=== PATIENT | male | born 1965 | race Caucasian/White ===

== ENCOUNTER 2022-11-25 21:49 | Emergency (ER) | payer OTHER, SELFPAY ==
--- NOTE | ~2022-11-25 | CT_ITS ---
EXAMINATION: CT HEAD WITHOUT CONTRAST CLINICAL INFORMATION: Confusion. COMPARISON: None available. TECHNIQUE: Contiguous axial imaging was performed from the skull base to vertex without intravenous administration of contrast. This CT examination was performed using dose optimization techniques as appropriate, variously including the following: *Automated exposure control *Adjustment of mA and/or kV according to patient size (this includes techniques or standardized protocols for targeted exams where dose is matched to indication/reason for exam; i.e. extremities or head) *Use of iterative reconstruction technique DLP: 687 mGy-cm FINDINGS: There is mild cerebral volume loss with prominence of the lateral and the third ventricles. The cortical sulci are widened appropriately. The fourth ventricle and basal cisterns are normally outlined. There is mild bilateral periventricular and central white matter diminished attenuation. There are old left basal ganglia lacunar infarcts. There is also an old right cerebellar infarct. There is no acute territorial defect, hemorrhage or midline shift. The extra-axial spaces are unremarkable. Calvarium: Intact. Maxillofacial sinuses and mastoids: There is ethmoid sinus mucosal thickening. Remaining maxillofacial sinuses and mastoids are clear. CT/CT head/brain wo IV con IMPRESSION: No acute intracranial pathology.
[2022-11-25 22:06] VITALS: BP 126/86; PULSE 81; RESP 21; TEMP 36.6; O2SAT 96
[2022-11-25 22:16] VITALS: BP 126/86; BP 128/85; PULSE 81; PULSE 92; RESP 21; TEMP 36.7; O2SAT 96; O2SAT 97; BMI 32.7
--- NOTE | 2022-11-25 22:23 | ECG_ITS ---
Test Reason : WEAKNESS Blood Pressure : / mmHG Vent. Rate : 076 BPM Atrial Rate : 076 BPM P-R Int : 186 ms QRS Dur : 080 ms QT Int : 376 ms P-R-T Axes : 018 -21 -11 degrees QTc Int : 423 ms Normal sinus rhythm Inferior infarct (cited on or before 22-NOV-2017) Anterior infarct , age undetermined Abnormal ECG When compared with ECG of 22-NOV-2017 19:07, Anterior infarct is now Present Referred By: Romy Larkin Electronically Signed By:COBY JUARES
--- NOTE | 2022-11-25 22:35 | ED_ITS ---
HPI - General Adult General Chief complaint: General Medical Stated complaint: FATIGUE WEAKNESS Time Seen by Provider: 11/25/22 21:59 Source: patient Mode of arrival: EMS Limitations: no limitations History of Present Illness HPI narrative: 57 yo male with stroke states he has speech memory R hand and leg weakness now uses a cane, DM, HTN, not on thinners notes he has been weak and depressed drinking ETOH and not himself for 1 week. He states this started after a friend's dad . He has no CP/SOB, fevers, or GI symptoms, no GIB symptoms. He has no fallen. His daughter told RN he was found sitting in his car at one point. He tells me he doesn't take his medications any more because he doesn't want to. MD complaint: weakness Onset (ago): week(s) (1) Radiation: non-radiation Severity: mild Quality: dull and constant Relieving factors: rest Exacerbating factors: movement Associated symptoms: other (depression ETOH use denies SI) Treatments prior to arrival: none Related Data Allergies Allergy/AdvReac Type Severity Reaction Status Date / Time bee pollen [BEE STINGS] Allergy Severe ANAPHYLAXIS Unverified 12/04/19 15:22 Review of Systems 2 Review of Systems: Constitutional : No Fever, No Chills, No Fatigue ENT/Mouth : No sore throat, No Rhinorrhea Eyes: No Eye Pain, No Swelling, No Redness Cardiovascular : No Chest Pain, No SOB, No Dyspnea on Exertion Respiratory : No Cough, No Sputum Gastrointestinal : No Nausea, No Vomiting, No Diarrhea, No abdominal Pain Genitourinary : No Dysuria, No Urinary Frequency, No Hematuria, Musculoskeletal : No joint pain, No Myalgias, No Joint Swelling Skin : No Skin Lesions, No rash Neuro : pos Weakness, No Numbness, No Dizziness, no Headache Psych : No Anxiety/Panic, pos Depression Heme/Lymph: No Bruising, No Bleeding,No Lymphadenopathy Endocrine : No Polyuria, No Polydipsia All other systems reviewed and are negative [facility] Past Medical History Attestation statement: The following information was validated with the patient. Medical History Diabetes HTN (hypertension) Stroke Social History Social History Alcohol intake: current Alcohol intake frequency: a few times a month Alcohol type: hard liquor Smoked in Last 30 Days: No Use of substances other than those prescribed or required for medical reasons: Yes Substance Use Type: Marijuana Substance Use Frequency: Occasionally Last Used Substance: Unknown Advance Directives: No Advance Directives Information Provided: No Physical Exam ED Vital Signs: Vital Signs - 24 hr 11/25/22 22:06 11/25/22 22:16 Temperature 98 F 98.0 F Pulse Rate 81 81 Respiratory Rate 21 H 21 H Blood Pressure 126/86 126/86 Pulse Oximetry 96 96 Oxygen Delivery Method Room Air Room Air BMI result Body Mass Index 32.7 Appearance: Alert. Oriented X3. No acute distress. Eyes: Pupils equal, round and reactive to light. ENT: Pharynx normal. Neck: Normal inspection. Neck supple. CVS: Normal heart rate and rhythm. Pulses normal. Respiratory: No respiratory distress. Breath sounds normal. Abdomen: Soft and non-tender. Skin: Skin warm and dry. Normal skin color. Normal skin turgor. Extremities: No lower extremity edema. No calf ttp Neuro: Oriented X 3. No motor deficit. No sensory deficit. sometimes has word finding difficulties Course Course Course Narrative: signed out to Dr. Magaña Reevaluation(s) Reevaluation #1: Physician observation started at 219am. Patient placed in physician observation because the patient needed more time for CARE team to assess the need for psych admission. At the time observation was started the patient's vitals were stable, patient is alert and oriented but slightly agitated, Neuro: at baseline. CV RRR, Lungs clear Medications Administered Discontinued Medications Generic Name Dose Route Start Last Admin Trade Name Winnie PRN Reason Stop Dose Admin Thiamine HCl 200 mg/ Sodium 102 mls @ 204 mls/hr 11/25/22 22:23 11/25/22 23:12 Chloride IV 11/25/22 22:52 204 mls/hr ONCE ONE Administration Medical Decision Making Medical Decision Making [facility] Narrative: 57 yo male with stroke states he has speech memory R hand and leg weakness now uses a cane, DM, HTN, not on thinners here with c/o diffuse weakness to me, fatigue, increasing ETOH use, not taking medications for weeks, depression but no SI. He will need basic labs, ETOH level, IV thiamine, EKG. I have ordered CT head to rule out any new stroke though he denies deficits to me. Differential Diagnosis Differential Diagnoses: The differential diagnosis associated with the presentation includes UTI, dehydration, depression, anemia, SI Admission/Observation Consideration of admission/observation: Escalation of care including admission/observation considered observe until cleared and see CARE team. Lab Data MDM Lab Attestation statement: I reviewed the patient's lab results. 11/25/22 22:49 11/25/22 22:49 Labs: Lab Results 11/25/22 11/26/22 Range/Units 22:49 01:18 WBC 6.0 (4.8-10.8) X10*3/uL RBC 4.95 (4.60-5.80) X10*6/uL Hgb 16.9 (14.0-18.0) g/dl Hct 49.1 (42.0-52.0) % MCV 99.2 H (80.0-98.0) fL MCH 34.1 H (27.0-33.0) pg MCHC 34.4 (31.0-36.0) g/dl RDW 14.3 (11.0-16.0) % Plt Count 255 (160-400) X10*3/uL MPV 9.6 (9.4-12.4) fL Immature Gran % (Auto) 0.2 (0.0-0.4) % Neut % (Auto) 36.0 L (45-73) % Lymph % (Auto) 53.1 H (20-40) % [place] % (Auto) 5.2 (2-11) % Eos % (Auto) 4.5 H (0-4) % Baso % (Auto) 1.0 (0-2) % Lymph # (Auto) 3.2 (1.2-4.9) X10*3/uL [place] # (Auto) 0.3 (0.1-1.2) X10*3/uL Eos # (Auto) 0.3 (0.0-0.4) X10*3/uL Baso # (Auto) 0.1 (0.0-0.2) X10*3/uL Abs Immat Gran (auto) 0.01 (0.00-0.03) X10*3/uL Absolute Neuts (auto) 2.2 (2.0-8.3) x10*3/uL Absolute Nucleated RBC 0.000 (0.0-0.012) X10*3/uL Nucleated RBC % (auto) 0.0 (0.0-0.2) /100WBC Sodium 142 (135-145) mmol/L Potassium 3.8 (3.3-5.1) mmol/L Chloride 104 (96-108) mmol/L Carbon Dioxide 29 (22-29) mmol/L Anion Gap 13 (12-20) BUN 9 (9-16) mg/dL Creatinine 0.97 (0.5-1.4) mg/dL Estim Creat Clear Calc 102.9 Estimated GFR > 60 Random Glucose 134 H (60-115) mg/dL Calcium 9.3 (8.4-10.2) mg/dL Magnesium 1.9 (1.6-2.6) mg/dL Total Bilirubin 0.4 (0.0-1.0) mg/dL Direct Bilirubin 0.2 (0.0-0.5) mg/dL AST 21 (5-37) U/L ALT 18 (0-40) U/L Alkaline Phosphatase 71 (39-117) U/L Ammonia 26 (13-55) umol/L Total Protein 7.1 (6.5-8.0) g/dL Albumin 3.9 (3.5-5.0) g/dL Ethyl Alcohol 304 H* mg/dL COVID-19 (DONAL) Negative (Negative) COVID-19 Clin Com See Note Independent Interpretation I performed an independent interpretation of an: EKG and CT Scan (no ICH) Interpretation: Rate: 76 Rhythm: NSR [place]: left Normal P waves. Normal NAMRATA. Normal QRS complex. ST T wave : no JASON, inverted T wave III no JASON qTC: normal prior studies: no acute ischemia The study has been interpreted contemporaneously by me. . Radiology Impression Discussion of test interpretation with radiology: I have reviewed the radiologist's reading. Independent Historian Clinical information obtained from an independent historian. History obtained from or confirmed by: EMS External Record Review External record reviewed: Outpatient record Discharge Plan Discharge Clinical Impression: Weakness Alcohol intoxication Qualifiers: Complication of substance-induced condition: uncomplicated Qualified Code(s): F 10920 - Alcohol use, unspecified with intoxication, uncomplicated Depression Qualifiers: Depression Type: unspecified Qualified Code(s): F32.A - Depression, unspecified Patient Disposition: Still a Patient
[2022-11-25 22:57] LABS: MANUAL DIFF FLAG NO
[2022-11-25 22:59] LABS: Basophils Absolute Auto 0.1 X10*3/uL (0.0-0.2); Eosinophils Absolute Auto 0.3 X10*3/uL (0.0-0.4); Eosinophils Percent Auto 4.5 % (0-4); Hematocrit 49.1 % (42.0-52.0); Hemoglobin 16.9 g/dl (14.0-18.0); Imm Gran Abs Auto 0.01 X10*3/uL (0.00-0.03); Imm Gran Pct Auto 0.2 % (0.0-0.4); Lymphocytes Absolute Auto 3.2 X10*3/uL (1.2-4.9); Lymphocytes Percent Auto 53.1 % (20-40); Mean Corpuscular HGB Conc 34.4 g/dl (31.0-36.0); Mean Corpuscular Hemoglobin 34.1 pg (27.0-33.0); Mean Corpuscular Volume 99.2 fL (80.0-98.0); Mean Platelet Volume 9.6 fL (9.4-12.4); Monocytes Absolute Auto 0.3 X10*3/uL (0.1-1.2); Monocytes Percent Auto 5.2 % (2-11); Neutrophils Absolute Auto 2.2 x10*3/uL (2.0-8.3); Platelet Count 255 X10*3/uL (160-400); Red Blood Count 4.95 X10*6/uL (4.60-5.80); Red Cell Distribution Width 14.3 % (11.0-16.0)
[2022-11-25] MEDS: Thiamine HCL 200 MG in 0.9 % Sodium Chloride 100 ML 204 MG IV (23:12)
[2022-11-25 23:15] LABS: Alanine Aminotransferase 18 U/L (0-40); Albumin Level 3.9 g/dL (3.5-5.0); Alkaline Phosphatase 71 U/L (39-117); Anion Gap 13 (12-20); Aspartate Amino Transferase 21 U/L (5-37); Bilirubin Direct 0.2 mg/dL (0.0-0.5); Bilirubin Total 0.4 mg/dL (0.0-1.0); Blood Urea Nitrogen 9 mg/dL (9-16); Calcium 9.3 mg/dL (8.4-10.2); Carbon Dioxide 29 mmol/L (22-29); Chloride 104 mmol/L (96-108); Creatinine Clr Calc Pharmacy 102.9; Estimated Glomerular Filt Rate > 60; Ethanol 304 mg/dL; Glucose Random 134 mg/dL (60-115); Magnesium 1.9 mg/dL (1.6-2.6); Potassium 3.8 mmol/L (3.3-5.1); Sodium 142 mmol/L (135-145); Total Protein 7.1 g/dL (6.5-8.0)
[2022-11-25 23:24] LABS: COVID-19 Test Negative (Negative); IDNOW Serial# 6674DD1D
--- NOTE | 2022-11-26 00:06 | PC.NURSE ---
Pt asissted to bathroom. standby assist- unsteady gait. PT reports feeling dizzy. ETOH 304. Call field within reach
[2022-11-26 01:31] LABS: Ammonia 26 umol/L (13-55)
[2022-11-26 02:27] VITALS: BP 110/71; PULSE 94; RESP 17; TEMP 36.7; O2SAT 94
--- NOTE | 2022-11-26 03:28 | PC.NURSE ---
Patient pull off cardiac monitoring, and took off hospital gown noting he was uncomfortable. States he cannot fall asleep and that at home he has only been sleeping 2 hours a night. Pt requesting medications to help him sleep.
[2022-11-26] MEDS: LORazepam 1 MG TABLET PO (04:47)
[2022-11-26 06:50] VITALS: BP 147/86; PULSE 80; RESP 13; TEMP 37.3; O2SAT 94
--- NOTE | 2022-11-26 07:28 | PC.NURSE ---
Alert and oriented, calm and cooperative, reports 6/10 chronic back pain. ambulating to bathroom with cane, gait steady.
--- NOTE | 2022-11-26 10:21 | PC.NURSE ---
Daughter updated on current condition. Daughter stating she would like her father offered resources regarding etoh abuse.
--- NOTE | 2022-11-26 11:02 | PC.NURSE ---
Patient reminded that urine specimen is needed, patient stating he doesn't feel the urge to go right now
[2022-11-26 11:37] LABS: Appearance Urine Clear; Color Urine Yellow; Glucose Urine UA Negative (Negative); Leukocyte Esterase Urine Negative (Negative); Nitrite Urine Negative (Negative); PH 5.5 (5.0-9.0); Specific Gravity - Urine 1.015 (1.005-1.025); Urine Blood Negative (Negative); Urine Ketones Negative (Negative); Urine Protein Negative (Neg-Trace)
[2022-11-26 11:45] LABS: Amphetamine Screen Urine Not Detected (Not Detect); Barbiturates, Urine Not Detected (Not Detect); Benzodiazepines Screen Urine Not Detected (Not Detect); Cannabinoid Screen Urine Not Detected (Not Detect); Cocaine Screen Urine Not Detected (Not Detect); Fentanyl, urine Not Detected (Not Detect); Opiate Screen Urine Not Detected (Not Detect); Phencyclidine Screen Urine Not Detected (Not Detect)
--- NOTE | 2022-11-26 13:59 | PC.NURSE ---
BP 92/44, provider aware, new orders obtained for 500mls fluids
[2022-11-26 16:59] VITALS: BP 189/87; PULSE 84; RESP 14; TEMP 36.7; O2SAT 97
== END 2022-11-26 18:44 | disposition home or self-care (01) ==
PROVIDERS: Emergency Provider Emergency Medicine
DX: R53.1 Weakness (principal); F10.920 Alcohol use, unspecified with intoxication, uncomplicated; Y90.8 Blood alcohol level of 240 mg/100 ml or more; F32.A Depression, unspecified; R45.1 Restlessness and agitation; Z20.822 Contact with and (suspected) exposure to COVID-19; E11.9 Type 2 diabetes mellitus without complications; I10 Essential (primary) hypertension; Z86.73 Personal history of transient ischemic attack (TIA), and cerebral infarction without residual deficits; F12.90 Cannabis use, unspecified, uncomplicated; Z91.148 Patient's other noncompliance with medication regimen for other reason
CPT/HCPCS: 36415; 70450; 80048; 80076; 80307; 81003; 82140; 83735; 85025; 87635; 93005; 96374; 99285; J3411; S9485

== ENCOUNTER 2023-12-25 20:40 | Inpatient (IN) | payer OTHER, SELFPAY ==
[2023-12-25] VITALS (7 sets, daily range): BP systolic 96–166; BP diastolic 72–95; PULSE 73–108; RESP 15–18; TEMP 36.7; O2SAT 96–97; BMI 30.7
--- NOTE | 2023-12-25 | ECG_ITS ---
Test Reason : DIZZINESS Blood Pressure : / mmHG Vent. Rate : 076 BPM Atrial Rate : 076 BPM P-R Int : 164 ms QRS Dur : 080 ms QT Int : 392 ms P-R-T Axes : -27 -27 -25 degrees QTc Int : 441 ms Normal sinus rhythm Inferior infarct (cited on or before 22-NOV-2017) Abnormal ECG When compared with ECG of 25-NOV-2022 22:40, Criteria for Anterior infarct are no longer Present Referred By: Generic ED Physician Electronically Signed By:DAYANNA TORRE MD
--- NOTE | ~2023-12-25 | CT_ITS ---
EXAMINATION: CT ANGIOGRAM HEAD CT ANGIOGRAM NECK CLINICAL INFORMATION: dizziness 4 days COMPARISON: CT head without contrast 11/25/2022 TECHNIQUE: Initial noncontrast factory lay out engineer imaging of the head and neck was performed. Noncontrast head CT was also performed. Test bolus sequences followed by intravenous administration 70 mL of Omnipaque 350. Helical imaging was performed in the axial plane from the aortic arch to the skull vertex. Delayed postcontrast imaging of the head was also performed. The data was processed at the staff technologist workstation for generation of MIP sequences. Angled MIPs and volume rendered reformatted images were also generated at an offline 3D workstation. Stenoses are assessed in accordance with NASCET criteria unless otherwise indicated. DLP: 2409 mGy-cm This CT examination was performed using dose optimization techniques as appropriate, variously including the following: *Automated exposure control. *Adjustment of mA and/or kV according to patient size (this includes techniques or standardized protocols for targeted exams where dose is matched to indication/reason for exam; i.e. extremities or head). *Use of iterative reconstruction technique. FINDINGS: CT Head: There is no evidence of acute intracranial hemorrhage or edematous territorial infarction. A few foci of hypoattenuation in the periventricular and deep white matter are consistent with mild microangiopathy. Chronic infarct in the inferior right cerebellum. Chronic lacunar infarcts involving the left basal ganglia and bilateral thalami. Bonilla-white matter differentiation is preserved. Proportional prominence of the ventricles and sulcal spaces. No evidence for obstructive hydrocephalus. No abnormal mass effect or midline shift. No extra-axial fluid collections. No pathologic intra-axial enhancement or regional oligemia. No acute soft tissue or osseous abnormalities. Mild scattered paranasal sinus mucosal thickening. Severe dental disease with multiple dental caries and several periapical lucencies. CT Neck: The thyroid gland and remaining cervical soft tissues are within normal limits. Multilevel cervical spondylosis. CT Upper Chest: The visualized lung apices and upper mediastinum are within normal limits. Neck CTA: Aortic Arch: Normal contour and caliber. Four vessel branching pattern with left vertebral artery arising directly from the arch between the left common carotid and left subclavian arteries. Great Vessel Origins: No significant stenosis of the branch origins. Right Common Carotid Artery: No focal stenosis or occlusion. Cervical Right Internal Carotid Artery: Calcific atherosclerotic disease of the carotid bulb and proximal internal carotid artery causing less than 50% stenosis. There is a 6 mm posterior projecting outpouching along the distal right ICA, compatible with a pseudoaneurysm. Left Common Carotid Artery: No focal stenosis or occlusion. Cervical Left Internal Carotid Artery: Calcific atherosclerotic disease of the carotid bulb and proximal internal carotid artery causing less than 50% stenosis. Cervical Right Vertebral Artery: No focal stenosis or occlusion. Cervical Left Vertebral Artery: No focal stenosis or occlusion. Brain CTA: Intracranial Internal Carotid Arteries: Calcific atherosclerotic disease of the intracranial internal carotid arteries without occlusion or flow-limiting stenosis. Right Anterior Cerebral Artery: Normal A1 segment. Normal opacification of the distal YONY segments. Left Anterior Cerebral Artery: Normal A1 segment. Normal opacification of the distal YONY segments. Anterior Communicating Artery: Normal. Right Middle Cerebral Artery: Normal M1 segment of the MCA without focal stenosis or occlusion. Normal arborization of the distal segments. Left Middle Cerebral Artery: Normal M1 segment of the MCA without focal stenosis or occlusion. Normal arborization of the distal segments. Right Vertebral Artery: Calcified atherosclerotic disease without high-grade luminal stenosis. Left Vertebral Artery: Calcified atherosclerotic disease without high-grade luminal stenosis. Basilar Artery: Normal without focal stenosis or occlusion. Normal appearance of the proximal superior cerebellar arteries. Right Posterior Cerebral Artery: Normal P1 segment. Normal opacification of the distal GYMNASTIC COACH segments. Left Posterior Cerebral Artery: Normal P1 segment. Normal opacification of the distal GYMNASTIC COACH segments. Normal opacification of the superior sagittal, straight, transverse, and sigmoid sinuses. CT/CT angio head neck IMPRESSION: 1. No acute intracranial abnormality including hemorrhage, mass effect, hydrocephalus, or acute territorial edematous infarction. 2. No arterial high grade stenosis or large vessel occlusion in the head or neck. 3. 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
--- NOTE | ~2023-12-25 | MR_ITS ---
EXAMINATION: MR BRAIN WITHOUT CONTRAST CLINICAL INFORMATION: Vertigo. COMPARISON: CTA head and neck from 12/25/2023. TECHNIQUE: MRI of the brain was obtained using routine sequences without contrast. FINDINGS: No focal restricted diffusion is demonstrated to suggest acute or subacute cerebral ischemia. No evidence of acute or chronic hemorrhagic products on heme-sensitive imaging. Chronic encephalomalacia of the right cerebellar hemisphere. Chronic lacunar infarcts of the left lentiform nucleus and thalamus. Scattered and partially confluent periventricular, deep white matter, and brainstem T2 FLAIR hyperintensities consistent with moderate underlying microangiopathy. Proportional prominence of the ventricles and sulcal spaces without evidence of obstructive hydrocephalus. No abnormal mass effect. No midline shift. Normal appearance of the pituitary gland. Normal positioning of the cerebellar tonsils. Normal arterial and venous vascular flow voids are present. Normal, homogeneous marrow signal. Mild mucosal thickening of the paranasal sinuses. No signal abnormalities within the mastoids. MR/MR head/brain wo con IMPRESSION: 1. No acute intracranial abnormalities. 2. Chronic encephalomalacia of the right cerebellar hemisphere. Chronic lacunar infarcts of the deep nuclei. Moderate underlying microangiopathy and generalized cerebral volume loss. Electronically signed by: Isaiah Miranda DO 12/27/2023 10:35 PM EDT
--- NOTE | 2023-12-25 21:08 | ED.DIZZY ---
HPI - Dizziness General Chief Complaint: Dizziness Stated Complaint: dizzy,weak,headache Time Seen by Provider: 12/25/23 21:00 Source: patient and EMS Mode of arrival: EMS Limitations: no limitations History of Present Illness ED Provider: Dr. Mihaela Miranda HPI Narrative: Patient comes to emergency room complaining of dizziness, weakness, nausea and decreased p.o. intake. Patient states that his symptoms have gradually been getting worse over last 4 days. Patient states that his last drink was 4 days ago. Patient states that he feels dizzy, explaining dizziness for him meds unsteady on his feet and nauseous. Patient denies any falls or hitting his head or losing consciousness. Denies any chest pain or shortness of breath. Patient states that when he had his CVA a few years ago, the symptoms were very similar. Patient could not come before because he did not have a ride to the hospital. His symptoms did not resolve for 4 days therefore he called an ambulance. Related Data Allergies Allergy/AdvReac Type Severity Reaction Status Date / Time bee pollen [BEE STINGS] Allergy Severe ANAPHYLAXIS Verified 12/25/23 20:59 Review of Systems Review of Systems: Constitutional : No Weight loss, No Fever, No Chills, No Night Sweats, No Fatigue, No Malaise ENT/Mouth : No Hearing loss, No Ear Pain, No Nasal Congestion, No Sinus Pain, No Hoarseness, No sore throat, No Rhinorrhea, No Swallowing Difficulty Eyes: No Eye Pain, No Swelling, No Redness, No Foreign Body, No Discharge, No Vision Changes Cardiovascular : No Chest Pain, No SOB, No Dyspnea on Exertion, No Orthopnea, No Edema, No Palpitations Respiratory : No Cough, No Sputum, No Wheezing, No Smoke Exposure, No Dyspnea Gastrointestinal : Complaining of Nausea, No Vomiting, No Diarrhea, No Constipation, No abdominal Pain, No Hematochezia, No Melena Genitourinary : no irregular bleeding, No Dysuria, No Urinary Frequency, No Hematuria, No Urinary Incontinence, No Urgency, No Flank Pain, No Urinary Flow Changes, No Hesitancy Musculoskeletal : No joint pain, No Myalgias, No Joint Swelling Skin : No Skin Lesions, No rash Neuro : No Weakness, No Numbness, No Paresthesias, No Loss of Consciousness, complaining of dizziness, no headache Psych : No Anxiety/Panic, No Depression, No SI/HI/AH/VH, No Social Issues, Heme/Lymph: No Bruising, No Bleeding,No Lymphadenopathy Endocrine : No Polyuria, No Polydipsia, No Temperature Intolerance [facility] Past Medical History Medical History Alcohol abuse Diabetes HTN (hypertension) Stroke Social History Social History Alcohol intake: current Alcohol intake frequency: 3 or more drinks per day Alcohol type: hard liquor Use of substances other than those prescribed or required for medical reasons: No Substance Use Type: Marijuana Advance Directives: No Do you have a plan to hurt others: No Plan Physical Exam Vital Signs: Vital Signs: Last Vital Signs Temp 98.0 F 12/25/23 22:43 Pulse 102 H 12/26/23 01:22 Resp 15 12/25/23 22:43 BP 113/68 12/26/23 01:22 Pulse Ox 97 12/25/23 22:43 O2 Del Method Room Air 12/25/23 22:43 BMI result Body Mass Index 30.7 Const: Other: Appearance: Alert. Oriented X3. No acute distress. Eyes: Pupils equal, round and reactive to light. ENT: Pharynx normal. Neck: Normal inspection. Neck supple. No lymph nodes noted. No crepitus CVS: Normal heart rate and rhythm. Pulses normal. Normal S1 and S2 Respiratory: No respiratory distress. Breath sounds normal. No Wheezing. No rales Abdomen: Soft and nontender. No rigidity. No distention. Skin: Skin warm and dry. Normal skin color. Normal skin turgor. Extremities: No lower extremity edema. No Lacerations. No Rash Neuro: Oriented X 3. No motor deficit. No sensory deficit. Moving all extremities. No slurred speech. CN 2 through 12 grossly intact Psych: calm, cooperative, normal affect Course Course Course Narrative: -patient's vitals stable -all of patient's labs pending -CT scan pending Medications Administered Discontinued Medications Generic Name Dose Route Start Last Admin Trade Name Freq PRN Reason Stop Dose Admin Sodium Chloride 1,000 mls @ 999 mls/hr 12/25/23 21:23 12/25/23 22:41 Ns IVCONT 12/25/23 22:23 Infused .Q1H1M ONE Infusion Sodium Chloride 1,000 mls @ 999 mls/hr 12/25/23 23:46 12/26/23 01:09 Ns IVCONT 12/26/23 00:46 Infused .Q1H1M ONE Infusion Iohexol 70 ml 12/25/23 22:29 12/25/23 22:30 Iohexol 350 Mg/Ml 100 Ml Infus..Btl IV 12/25/23 22:30 70 ml ONCE ONE Administration Medical Decision Making Medical Decision Making [facility] Narrative: My interpretation of labs, normal hematology, at baseline, coagulation normal, chemistry normal, T bili slightly bumped 2.1, AST ALT alk-phos normal, no abdominal pain, ammonia normal, troponin negative, BNP slightly elevated with no respiratory symptoms -head and neck CTA do not show any acute abnormality. -patient's orthostatic vitals: blood pressure dropped over 40 mmHg feeling lightheaded. Patient receiving IV fluids -patient has had multiple orthostatics, all positive accept the last 1 however patient is still very lightheaded when he stands up. -patient's vitals stable. -I discussed the patient with Dr. Jj, patient being admitted/observation for orthostatic hypotension Differential Diagnosis Differential Diagnoses: The differential diagnosis associated with the presentation includes (Orthostatic hypotension, TIA, CVA, ETOH abuse) Admission/Observation Consideration of admission/observation: Escalation of care including admission/observation considered Consult Healthcare Provider Management of the patient was discussed with: Hospitalist Lab Data [facility] Lab Attestation statement: I reviewed the patient's lab results. 12/25/23 21:27 12/25/23 21:26 Labs: Lab Results 12/25/23 12/25/23 Range/Units 21:26 21:27 WBC 5.9 (4.8-10.8) X10*3/uL RBC 5.10 (4.60-5.80) X10*6/uL Hgb 17.8 (14.0-18.0) g/dl Hct 50.9 (42.0-52.0) % MCV 99.8 H (80.0-98.0) fL MCH 34.9 H (27.0-33.0) pg MCHC 35.0 (31.0-36.0) g/dl RDW 13.1 (11.0-16.0) % Plt Count 186 D (160-400) X10*3/uL MPV 9.6 (9.4-12.4) fL Immature Gran % (Auto) 0.5 H (0.0-0.4) % Neut % (Auto) 59.4 (45-73) % Lymph % (Auto) 32.7 (20-40) % [place] % (Auto) 4.7 (2-11) % Eos % (Auto) 1.9 (0-4) % Baso % (Auto) 0.8 (0-2) % Lymph # (Auto) 1.9 (1.2-4.9) X10*3/uL [place] # (Auto) 0.3 (0.1-1.2) X10*3/uL Eos # (Auto) 0.1 (0.0-0.4) X10*3/uL Baso # (Auto) 0.1 (0.0-0.2) X10*3/uL Abs Immat Gran (auto) 0.03 (0.00-0.03) X10*3/uL Absolute Neuts (auto) 3.5 (2.0-8.3) x10*3/uL Absolute Nucleated RBC 0.000 (0.0-0.012) X10*3/uL Nucleated RBC % (auto) 0.0 (0.0-0.2) /100WBC PT 11.9 (10.9-12.4) SEC INR 1.0 (0.9-1.1) Sodium 137 (135-145) mmol/L Potassium 4.3 (3.3-5.1) mmol/L Chloride 97 (96-108) mmol/L Carbon Dioxide 28 (22-29) mmol/L Anion Gap 16 (12-20) BUN 11 (9-16) mg/dL Creatinine 0.94 (0.5-1.4) mg/dL Estim Creat Clear Calc 101.8 Estimated GFR > 60 Random Glucose 86 (60-115) mg/dL Calcium 9.6 (8.4-10.2) mg/dL Magnesium 1.6 (1.6-2.6) mg/dL Total Bilirubin 2.1 H (0.0-1.0) mg/dL Direct Bilirubin 0.8 H (0.0-0.5) mg/dL AST 20 (5-37) U/L ALT 18 (0-40) U/L Alkaline Phosphatase 75 (39-117) U/L Troponin I High Sens 13.5 (<3.5-35.0) ng/L B-Natriuretic Peptide 137 H (<100) pg/mL Total Protein 7.0 (6.5-8.0) g/dL Albumin 3.9 (3.5-5.0) g/dL Ethyl Alcohol < 10 mg/dL Influenza Type A (PCR) NEGATIVE (Negative) Influenza Type B (PCR) NEGATIVE (Negative) RSV RNA Qual (PCR) NEGATIVE (Negative) SARS-CoV-2 RNA (RT-PCR) NEGATIVE (Negative) Independent Interpretation I performed an independent interpretation of an: CT Scan Radiology Impression Discussion of test interpretation with radiology: I have reviewed the radiologist's reading. Radiologist Impression: CT Head: There is no evidence of acute intracranial hemorrhage or edematous territorial infarction. A few foci of hypoattenuation in the periventricular and deep white matter are consistent with mild microangiopathy. Chronic infarct in the inferior right cerebellum. Chronic lacunar infarcts involving the left basal ganglia and bilateral thalami. Bonilla-white matter differentiation is preserved. Proportional prominence of the ventricles and sulcal spaces. No evidence for obstructive hydrocephalus. No abnormal mass effect or midline shift. No extra-axial fluid collections. No pathologic intra-axial enhancement or regional oligemia. No acute soft tissue or osseous abnormalities. Mild scattered paranasal sinus mucosal thickening. Severe dental disease with multiple dental caries and several periapical lucencies. CT Neck: The thyroid gland and remaining cervical soft tissues are within normal limits. Multilevel cervical spondylosis. CT Upper Chest: The visualized lung apices and upper mediastinum are within normal limits. Neck CTA: Aortic Arch: Normal contour and caliber. Four vessel branching pattern with left vertebral artery arising directly from the arch between the left common carotid and left subclavian arteries. Great Vessel Origins: No significant stenosis of the branch origins. Right Common Carotid Artery: No focal stenosis or occlusion. Cervical Right Internal Carotid Artery: Calcific atherosclerotic disease of the carotid bulb and proximal internal carotid artery causing less than 50% stenosis. There is a 6 mm posterior projecting outpouching along the distal right ICA, compatible with a pseudoaneurysm. Left Common Carotid Artery: No focal stenosis or occlusion. Cervical Left Internal Carotid Artery: Calcific atherosclerotic disease of the carotid bulb and proximal internal carotid artery causing less than 50% stenosis. Cervical Right Vertebral Artery: No focal stenosis or occlusion. Cervical Left Vertebral Artery: No focal stenosis or occlusion. Brain CTA: Intracranial Internal Carotid Arteries: Calcific atherosclerotic disease of the intracranial internal carotid arteries without occlusion or flow-limiting stenosis. Right Anterior Cerebral Artery: Normal A1 segment. Normal opacification of the distal YONY segments. Left Anterior Cerebral Artery: Normal A1 segment. Normal opacification of the distal YONY segments. Anterior Communicating Artery: Normal. Right Middle Cerebral Artery: Normal M1 segment of the MCA without focal stenosis or occlusion. Normal arborization of the distal segments. Left Middle Cerebral Artery: Normal M1 segment of the MCA without focal stenosis or occlusion. Normal arborization of the distal segments. Right Vertebral Artery: Calcified atherosclerotic disease without high-grade luminal stenosis. Left Vertebral Artery: Calcified atherosclerotic disease without high-grade luminal stenosis. Basilar Artery: Normal without focal stenosis or occlusion. Normal appearance of the proximal superior cerebellar arteries. Right Posterior Cerebral Artery: Normal P1 segment. Normal opacification of the distal C++ PROFESSOR segments. Left Posterior Cerebral Artery: Normal P1 segment. Normal opacification of the distal C++ PROFESSOR segments. Normal opacification of the superior sagittal, straight, transverse, and sigmoid sinuses. CT/CT angio head neck IMPRESSION: 1. No acute intracranial abnormality including hemorrhage, mass effect, hydrocephalus, or acute territorial edematous infarction. 2. No arterial high grade stenosis or large vessel occlusion in the head or neck. 3. 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 Time includes review of lab data, radiology results, discussion with consultants, and monitoring for potential decompensation. Intervention performed as documented. Discharge Plan Discharge Clinical Impression: Orthostatic hypotension Patient Disposition: Admitted as Observation Print Language: Irish
[2023-12-25 21:33] LABS: Basophils Absolute Auto 0.1 X10*3/uL (0.0-0.2); Basophils Percent Auto 0.8 % (0-2); Eosinophils Absolute Auto 0.1 X10*3/uL (0.0-0.4); Eosinophils Percent Auto 1.9 % (0-4); Hematocrit 50.9 % (42.0-52.0); Hemoglobin 17.8 g/dl (14.0-18.0); Imm Gran Abs Auto 0.03 X10*3/uL (0.00-0.03); Imm Gran Pct Auto 0.5 % (0.0-0.4); Lymphocytes Absolute Auto 1.9 X10*3/uL (1.2-4.9); Lymphocytes Percent Auto 32.7 % (20-40); MANUAL DIFF FLAG NO; Mean Corpuscular Hemoglobin 34.9 pg (27.0-33.0); Mean Corpuscular Volume 99.8 fL (80.0-98.0); Mean Platelet Volume 9.6 fL (9.4-12.4); Monocytes Absolute Auto 0.3 X10*3/uL (0.1-1.2); Monocytes Percent Auto 4.7 % (2-11); Neutrophils Absolute Auto 3.5 x10*3/uL (2.0-8.3); Neutrophils Percent Auto 59.4 % (45-73); Platelet Count 186 X10*3/uL (160-400); Red Cell Distribution Width 13.1 % (11.0-16.0); White Blood Count 5.9 X10*3/uL (4.8-10.8)
[2023-12-25] MEDS: 0.9 % Sodium Chloride 1,000 ML 999 ML IVCONT (21:40)
[2023-12-25 21:43] LABS: Prothrombin Time 11.9 SEC (10.9-12.4)
[2023-12-25 21:53] LABS: Alanine Aminotransferase 18 U/L (0-40); Albumin Level 3.9 g/dL (3.5-5.0); Alkaline Phosphatase 75 U/L (39-117); Anion Gap 16 (12-20); Aspartate Amino Transferase 20 U/L (5-37); Bilirubin Direct 0.8 mg/dL (0.0-0.5); Bilirubin Total 2.1 mg/dL (0.0-1.0); Blood Urea Nitrogen 11 mg/dL (9-16); Calcium 9.6 mg/dL (8.4-10.2); Carbon Dioxide 28 mmol/L (22-29); Chloride 97 mmol/L (96-108); Creatinine Clr Calc Pharmacy 101.8; Estimated Glomerular Filt Rate > 60; Ethanol < 10 mg/dL; Glucose Random 86 mg/dL (60-115); Magnesium 1.6 mg/dL (1.6-2.6); Potassium 4.3 mmol/L (3.3-5.1); Sodium 137 mmol/L (135-145)
[2023-12-25 21:57] LABS: B Type Natriuretic Peptide 137 pg/mL (<100)
[2023-12-25 21:58] LABS: Troponin-I High Sensitivity 13.5 ng/L (<3.5-35.0)
[2023-12-25 22:12] LABS: Influenza A PCR NEGATIVE (Negative); Influenza B PCR NEGATIVE (Negative); Resp Syncy Virus RNA Qual PCR NEGATIVE (Negative); SARS COV2 PCR INHOUSE NEGATIVE (Negative)
[2023-12-25] MEDS: iohexoL 350 MG/ML 100 ML INFUS..BTL 70 ML IV (22:30)
[2023-12-26] VITALS (9 sets, daily range): BP systolic 110–158; BP diastolic 57–88; PULSE 66–102; RESP 16–20; TEMP 36.1–36.9; O2SAT 95–98; BMI 31.1
[2023-12-26] MEDS: 0.9 % Sodium Chloride 1,000 ML 999 ML IVCONT (00:08)
--- NOTE | 2023-12-26 02:14 | P.HPHOSP_ITS ---
History of Present Illness Date of Service: 12/26/23 Chief Complaint: Dizziness This is a 58-year-old male with pertinent history of CVA, CAD, [id number] diabetes mellitus, peripheral neuropathy, tobacco use disorder, alcohol use disorder who presents to the emergency department for evaluation of dizziness. Patient states his symptoms began 3 days prior to presentation. He has been having dizziness which is worse when he tries to get up from a seated position. No chest pain or palpitations. Did not pass out. Denies vomiting or diarrhea. No sensation of room spinning. Denies any vision changes. No fever, chills, shortness of breath, abdominal pain, changes in urinary or bowel habits. States last alcohol use was 4 days prior to presentation and no concern for alcohol withdrawal. Patient states he lost his insurance and hence unable to take his prescription medications for a while but recently resume them The emergency department, orthostatic vital signs positive and patient was given IV crystalloids Review of Systems 2 Constitutional: Constitutional: Reports fatigue ENT: Reports dizziness Cardiovascular: Cardiovascular: Reports no additional cardiovascular complaints Respiratory: Respiratory: Reports no additional respiratory complaints Gastrointestinal: Gastrointestinal: Reports no additional gastrointestinal complaints Genitourinary: Genitourinary: Reports no additional male genitourinary complaints Neurologic: Reports dizziness Endocrine: Endocrine: Reports fatigue [facility] Medical History Alcohol abuse Diabetes HTN (hypertension) Stroke Social History Alcohol intake: current Alcohol intake frequency: 3 or more drinks per day Alcohol type: hard liquor Use of substances other than those prescribed or required for medical reasons: No Substance Use Type: Marijuana Advance Directives: No Do you have a plan to hurt others: No Plan Meds Allergies Allergy/AdvReac Type Severity Reaction Status Date / Time bee pollen [BEE STINGS] Allergy Severe ANAPHYLAXIS Verified 12/25/23 20:59 Physical Exam 2 Vital Signs and Narrative: Vital Signs: Last Vital Signs Temp 98.0 F 12/25/23 22:43 Pulse 102 H 12/26/23 01:22 Resp 15 12/25/23 22:43 BP 113/68 12/26/23 01:22 Pulse Ox 97 12/25/23 22:43 O2 Del Method Room Air 12/25/23 22:43 BMI result Body Mass Index 30.7 Middle-aged male lying in bed in no distress Neck supple, no JVD Regular rate and rhythm, S1-S2 heard Regular breath sounds bilaterally, no wheezing or crackles appreciated Abdomen soft nontender, no guarding, no rigidity Patient is awake, alert and oriented to self, place, time and person ; no focal motor deficit Psych: Normal mood No pedal edema Results Labs 12/25/23 21:27 12/25/23 21:26 Labs: Laboratory Results - last 24 hr 12/25/23 12/25/23 21:26 21:27 MCV 99.8 H MCH 34.9 H MCHC 35.0 RDW 13.1 Plt Count 186 D MPV 9.6 Immature Gran % (Auto) 0.5 H Neut % (Auto) 59.4 Lymph % (Auto) 32.7 Child[place] % (Auto) 4.7 Eos % (Auto) 1.9 Baso % (Auto) 0.8 Lymph # (Auto) 1.9 Child[place] # (Auto) 0.3 Eos # (Auto) 0.1 Baso # (Auto) 0.1 Abs Immat Gran (auto) 0.03 Absolute Neuts (auto) 3.5 Absolute Nucleated RBC 0.000 Nucleated RBC % (auto) 0.0 PT 11.9 INR 1.0 Anion Gap 16 Estim Creat Clear Calc 101.8 Estimated GFR > 60 Random Glucose 86 Calcium 9.6 Magnesium 1.6 Total Bilirubin 2.1 H Direct Bilirubin 0.8 H AST 20 ALT 18 Alkaline Phosphatase 75 Troponin I High Sens 13.5 B-Natriuretic Peptide 137 H Total Protein 7.0 Albumin 3.9 Ethyl Alcohol < 10 Influenza Type A (PCR) NEGATIVE Influenza Type B (PCR) NEGATIVE RSV RNA Qual (PCR) NEGATIVE SARS-CoV-2 RNA (RT-PCR) NEGATIVE Imaging Radiologist's Impressions: Impressions Head/Neck CTA 12/25/23 21:40 IMPRESSION: 1. No acute intracranial abnormality including hemorrhage, mass effect, hydrocephalus, or acute territorial edematous infarction. 2. No arterial high grade stenosis or large vessel occlusion in the head or neck. 3. 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 #. Orthostatic presyncope: Orthostatic vital signs positive in the ER. Resuscitated with IV crystalloids. Repeat orthostatics in a.m. #. CAD/CVA: On antiplatelet agent and statin #. Slc-[id number] diabetes mellitus: Initiating Accu-Cheks with sliding scale insulin before meals and at bedtime #. Peripheral neuropathy: On gabapentin #. Tobacco use disorder: Counseled regarding cessation. Refused nicotine patch #. Alcohol use disorder: Monitor CIWA. On thiamine and folic acid Med rec pending DVT prophylaxis: Lovenox Full code Quality Stroke Does the patient have a stroke diagnosis?: No VTE Prior VTE?: No VTE Risk Level:: Medical - moderate - high VTE Device Contraindication: Treatment Not Indicated VTE Drug Contraindication: N/A - Med Ordered
[2023-12-26 05:14] LABS: Hematocrit 46.3 % (42.0-52.0); Hemoglobin 15.9 g/dl (14.0-18.0); Mean Corpuscular HGB Conc 34.3 g/dl (31.0-36.0); Mean Corpuscular Hemoglobin 34.3 pg (27.0-33.0); Mean Corpuscular Volume 99.8 fL (80.0-98.0); Mean Platelet Volume 9.7 fL (9.4-12.4); Platelet Count 172 X10*3/uL (160-400); Red Blood Count 4.64 X10*6/uL (4.60-5.80); Red Cell Distribution Width 13.1 % (11.0-16.0); White Blood Count 5.9 X10*3/uL (4.8-10.8)
[2023-12-26 05:29] LABS: Anion Gap 11 (12-20); Blood Urea Nitrogen 10 mg/dL (9-16); Calcium 8.5 mg/dL (8.4-10.2); Carbon Dioxide 28 mmol/L (22-29); Chloride 101 mmol/L (96-108); Estimated Glomerular Filt Rate > 60; Glucose Random 96 mg/dL (60-115); Potassium 3.4 mmol/L (3.3-5.1); Sodium 137 mmol/L (135-145)
[2023-12-26 05:47] LABS: Amphetamine Screen Urine Not Detected (Not Detect); Barbiturates, Urine Not Detected (Not Detect); Benzodiazepines Screen Urine Not Detected (Not Detect); Buprenorphine Scr Not Detected (Not Detect); Cannabinoid Screen Urine Not Detected (Not Detect); Cocaine Screen Urine Not Detected (Not Detect); Fentanyl, urine Not Detected (Not Detect); Methadone Screen, Urine Not Detected (Not Detect); Opiate Screen Urine Not Detected (Not Detect); Oxycodone Screen Urine Not Detected (Not Detect); Phencyclidine Screen Urine Not Detected (Not Detect)
[2023-12-26 07:13] LABS: Glucose, Whole Blood 118 mg/dL (60-115)
[2023-12-26 08:26] LABS: Estimated Average Glucose 128 mg/dL; Hemoglobin A1C 173.7822 umol/L; Hemoglobin A1c % 6.1 % (<6.0); Total Hemoglobin (HGBA1C) 4053.1388 umol/L
--- NOTE | 2023-12-26 09:24 | PHA.MEDREC ---
Addendum entered by Ramya Alamo RPh 12/26/23 09:56: Reviewed by [facility]. Will let provider know patient had not taken these medications in over a year, and pt plans to resume them now that he had insurance. Original Note: Pharmacy Consult ? Medication Reconciliation Pharmacy has completed the medication reconciliation. Spoke to patient and he stated that he has not had any medications in about a year, year and a half due to not having insurance but states he just got it back and has a medication list with a bunch of old medications that he requested we put on the list so he can be put back on them.
[2023-12-26] MEDS: Enoxaparin Sodium 40 MG/0.4 ML SYRINGE SUBCUT (09:41)
--- NOTE | 2023-12-26 11:27 | HO.PM.IMPN ---
Subjective Subjective Date of Service: 12/26/23 Interval History: dizzy on ambulation Physical Exam Vital Signs: Vital Signs: Last Vital Signs Temp 98.5 F 12/26/23 04:08 Pulse 88 12/26/23 10:44 Resp 16 12/26/23 04:08 BP 110/57 L 12/26/23 10:42 Pulse Ox 98 12/26/23 04:08 O2 Del Method Room Air 12/26/23 04:08 BMI result Body Mass Index 30.7 General: AO X 3, no acute distress Resp: CTA bilateral, no accessory muscles used CVS: S1,S2,RRR GI: soft, non tender, non distended Neuro: motor grossly intact, alert Psych: appropriate affect, appropriate insight Objective Data Active Medications Acetaminophen (Acetaminophen 325 Mg Tablet) 650 mg PO Q6H PRN PRN Reason: Pain, Mild (Pain Scale 1-3), fever or headache Calcium Carbonate (Calcium Carbonate 750 Mg Tab.Chew) 750 mg PO Q4H PRN PRN Reason: Heartburn Enoxaparin Sodium (Enoxaparin Sodium 40 Mg/0.4 Ml Syringe) 40 mg SUBCUT Q24H [facility] Last Admin: 12/26/23 09:41 Dose: 40 mg Documented By: AMEE Glucose (Glucose Gel 15 Gm Gel..Gram.) 15 gm PO Q15M PRN; Protocol PRN Reason: per Hypoglycemia Standing Ord. Dextrose (D10) 250 mls @ 750 mls/hr IV Q15M PRN; Protocol PRN Reason: per Hypoglycemia Standing Ord. Sodium Chloride (Ns) 1,000 mls @ 100 mls/hr IVCONT .Q10H [facility] Insulin Human Lispro (Insulin Lispro 100 Unit/Ml 3 Ml Vial) 0 unit SUBCUT QIDACHS [facility]; Protocol Last Admin: 12/26/23 07:27 Dose: Not Given Documented By: AMEE Non-Admin Reason: No Insulin Coverage Magnesium Hydroxide (Milk Of Magnesia 30 Ml Oral.Susp) 30 ml PO DAILY PRN PRN Reason: Constipation Melatonin (Melatonin 3 Mg Tablet) 6 mg PO BEDTIME PRN PRN Reason: Insomnia Ondansetron HCl (Ondansetron Hcl 4 Mg/2 Ml Vial) 4 mg IVPUSH Q8H PRN PRN Reason: Nausea and Vomiting Sodium Chloride (0.9 % Sodium Chloride Flush 3 Ml Syringe) 3 ml IVFLUSH QSHIFT [facility] Last Admin: 12/26/23 08:01 Dose: Not Given Documented By: AMEE Non-Admin Reason: IV Running Labs 12/26/23 04:56 12/26/23 04:56 Labs: Laboratory Results - last 24 hr 12/25/23 12/25/23 12/26/23 21:26 21:27 04:56 MCV 99.8 H 99.8 H MCH 34.9 H 34.3 H MCHC 35.0 34.3 RDW 13.1 13.1 Plt Count 186 D 172 MPV 9.6 9.7 Immature Gran % (Auto) 0.5 H Neut % (Auto) 59.4 Lymph % (Auto) 32.7 Parke % (Auto) 4.7 Eos % (Auto) 1.9 Baso % (Auto) 0.8 Lymph # (Auto) 1.9 Parke # (Auto) 0.3 Eos # (Auto) 0.1 Baso # (Auto) 0.1 Abs Immat Gran (auto) 0.03 Absolute Neuts (auto) 3.5 Absolute Nucleated RBC 0.000 0.000 Nucleated RBC % (auto) 0.0 0.0 PT 11.9 INR 1.0 Anion Gap 16 11 L Estim Creat Clear Calc 101.8 110.0 Estimated GFR > 60 > 60 POC Glucose Random Glucose 86 96 Estimat Average Glucose 128 Hemoglobin A1c % 6.1 H Calcium 9.6 8.5 D Magnesium 1.6 Total Bilirubin 2.1 H Direct Bilirubin 0.8 H AST 20 ALT 18 Alkaline Phosphatase 75 Troponin I High Sens 13.5 B-Natriuretic Peptide 137 H Total Protein 7.0 Albumin 3.9 Urine Opiates Screen Ur Buprenorphine Scrn Ur Oxycodone Screen Urine Methadone Screen Urine Fentanyl Screen Ur Barbiturates Screen Ur Phencyclidine Scrn Ur Amphetamines Screen U Benzodiazepines Scrn Urine Cocaine Screen U Marijuana (THC) Screen Ethyl Alcohol < 10 Influenza Type A (PCR) NEGATIVE Influenza Type B (PCR) NEGATIVE RSV RNA Qual (PCR) NEGATIVE SARS-CoV-2 RNA (RT-PCR) NEGATIVE 12/26/23 12/26/23 05:31 07:07 MCV MCH MCHC RDW Plt Count MPV Immature Gran % (Auto) Neut % (Auto) Lymph % (Auto) Parke % (Auto) Eos % (Auto) Baso % (Auto) Lymph # (Auto) Parke # (Auto) Eos # (Auto) Baso # (Auto) Abs Immat Gran (auto) Absolute Neuts (auto) Absolute Nucleated RBC Nucleated RBC % (auto) PT INR Anion Gap Estim Creat Clear Calc Estimated GFR POC Glucose 118 H Random Glucose Estimat Average Glucose Hemoglobin A1c % Calcium Magnesium Total Bilirubin Direct Bilirubin AST ALT Alkaline Phosphatase Troponin I High Sens B-Natriuretic Peptide Total Protein Albumin Urine Opiates Screen Not Detected Ur Buprenorphine Scrn Not Detected Ur Oxycodone Screen Not Detected Urine Methadone Screen Not Detected Urine Fentanyl Screen Not Detected Ur Barbiturates Screen Not Detected Ur Phencyclidine Scrn Not Detected Ur Amphetamines Screen Not Detected U Benzodiazepines Scrn Not Detected Urine Cocaine Screen Not Detected U Marijuana (THC) Screen Not Detected Ethyl Alcohol Influenza Type A (PCR) Influenza Type B (PCR) RSV RNA Qual (PCR) SARS-CoV-2 RNA (RT-PCR) Assessment and Plan (1) Pre-syncope: Status: Acute (2) Orthostatic hypotension: Status: Acute Plan 58M PMH etoh dependence, cva, cad, dm, peripheral neuropathy, presented with dizziness Presyncope due to orthostatic hypotension Continue IV fluids, monitor If no improvement after for hydration will add midodrine Likely component of autonomic dysfunction due to alcohol dependence History of CVA, CAD Patient noncompliant with meds, we will restart dual antiplatelet and statin Diabetes Insulin sliding scale DVT prophylaxis with Lovenox Full Code reason for continued hospitalization: Still lightheaded Quality Stroke Does the patient have a stroke diagnosis?: No VTE Prior VTE?: No VTE Risk Level:: Medical - moderate - high VTE Device Contraindication: Treatment Not Indicated VTE Drug Contraindication: N/A - Med Ordered
[2023-12-26] MEDS: 0.9 % Sodium Chloride 1,000 ML 100 ML IVCONT ×2 (12:26→22:25)
--- NOTE | 2023-12-26 13:06 | MHC.CM.PN ---
Elizabeth 03/27/23, pt. lives alone, he has no home health services, for DME, he has a cane. He reports that his sister is his HCP, her name is Sarah Foster, . He declined to complete a HCP form here. He reports that his PCP is Dr. Blu Hdz. He does not have transport home at [place], will need assistance. DCP: home, self care. CM to follow for DC needs.
[2023-12-26 13:15] LABS: Glucose, Whole Blood 134 mg/dL (60-115)
[2023-12-26] MEDS: Gabapentin 100 MG CAPSULE 200 MG PO ×2 (16:36→19:56)
[2023-12-26] MEDS: Meclizine HCl 12.5 MG TABLET PO ×2 (16:37→19:57)
[2023-12-26 16:59] LABS: Glucose, Whole Blood 124 mg/dL (60-115)
[2023-12-26] MEDS: traMADoL HCL 50 MG TABLET 25 MG PO (19:56)
[2023-12-26] MEDS: Atorvastatin Calcium 80 MG TABLET PO (19:57)
[2023-12-26] MEDS: Melatonin 3 MG TABLET 6 MG PO (19:58)
[2023-12-26] MEDS: Flu Vacc TS2024-25(6mos up)/PF 0.5 ML SYRINGE IM (19:58)
[2023-12-26 21:05] LABS: Glucose, Whole Blood 169 mg/dL (60-115)
[2023-12-26] MEDS: Insulin Lispro 100 UNIT/ML 3 ML VIAL SUBCUT (22:23)
[2023-12-27] VITALS (9 sets, daily range): BP systolic 104–158; BP diastolic 57–86; PULSE 51–77; RESP 18–20; TEMP 35.8–36.4; O2SAT 93–98
[2023-12-27] MEDS: 0.9 % Sodium Chloride Flush 3 ML SYRINGE IVFLUSH ×5 (00:40→22:24)
[2023-12-27 06:45] LABS: Hematocrit 47.5 % (42.0-52.0); Hemoglobin 16.4 g/dl (14.0-18.0); Mean Corpuscular HGB Conc 34.5 g/dl (31.0-36.0); Mean Corpuscular Hemoglobin 34.5 pg (27.0-33.0); Mean Platelet Volume 10.2 fL (9.4-12.4); Platelet Count 163 X10*3/uL (160-400); Red Blood Count 4.75 X10*6/uL (4.60-5.80); Red Cell Distribution Width 13.1 % (11.0-16.0); White Blood Count 5.8 X10*3/uL (4.8-10.8)
[2023-12-27 06:59] LABS: Anion Gap 11 (12-20); Blood Urea Nitrogen 14 mg/dL (9-16); Carbon Dioxide 26 mmol/L (22-29); Chloride 105 mmol/L (96-108); Creatinine Clr Calc Pharmacy 120.3; Estimated Glomerular Filt Rate > 60; Glucose Fasting 109 mg/dL (60-99); Potassium 3.6 mmol/L (3.3-5.1); Sodium 138 mmol/L (135-145)
[2023-12-27 08:14] LABS: Glucose, Whole Blood 105 mg/dL (60-115)
[2023-12-27] MEDS: Aspirin Enteric Coated 81 MG TABLET.DR PO (09:08)
[2023-12-27] MEDS: Multivitamin TABLET 1 TAB PO (09:08)
[2023-12-27] MEDS: Gabapentin 100 MG CAPSULE 200 MG PO ×3 (09:08→22:24)
[2023-12-27] MEDS: Thiamine HCL 100 MG TABLET PO (09:08)
[2023-12-27] MEDS: Meclizine HCl 12.5 MG TABLET PO ×3 (09:08→22:23)
[2023-12-27] MEDS: Clopidogrel Bisulfate 75 MG TABLET PO (09:08)
[2023-12-27] MEDS: 0.9 % Sodium Chloride 1,000 ML 100 ML IVCONT (09:08)
[2023-12-27] MEDS: Pyridoxine HCl (Vitamin B6) 50 MG TABLET PO (09:08)
[2023-12-27] MEDS: Folic Acid 1 MG TABLET PO (09:08)
[2023-12-27] MEDS: Enoxaparin Sodium 40 MG/0.4 ML SYRINGE SUBCUT (09:09)
--- NOTE | 2023-12-27 10:30 | P.PNIM_ITS ---
Subjective Subjective Date of Service: 12/27/23 Interval History: feeling a bit better Physical Exam 2 Vital Signs: Vital Signs: Last Vital Signs Temp 96.5 F L 12/27/23 07:56 Pulse 59 12/27/23 07:56 Resp 18 12/27/23 07:56 BP 138/83 12/27/23 07:56 Pulse Ox 93 12/27/23 07:56 O2 Del Method Room Air 12/27/23 04:00 BMI result Body Mass Index 31.1 General: AO X 3, no acute distress Resp: CTA bilateral, no accessory muscles used CVS: S1,S2,RRR GI: soft, non tender, non distended Neuro: motor grossly intact, alert Psych: appropriate affect, appropriate insight Objective Data Active Medications Acetaminophen (Acetaminophen 325 Mg Tablet) 650 mg PO Q6H PRN PRN Reason: Pain, Mild (Pain Scale 1-3), fever or headache Aspirin (Aspirin Enteric Coated 81 Mg Tablet.) 81 mg PO DAILY [facility] Last Admin: 12/27/23 09:08 Dose: 81 mg Documented By: JIAN Atorvastatin Calcium (Atorvastatin Calcium 80 Mg Tablet) 80 mg PO BEDTIME [facility] Last Admin: 12/26/23 19:57 Dose: 80 mg Documented By: LIZ Calcium Carbonate (Calcium Carbonate 750 Mg Tab.Chew) 750 mg PO Q4H PRN PRN Reason: Heartburn Clopidogrel Bisulfate (Clopidogrel Bisulfate 75 Mg Tablet) 75 mg PO DAILY [facility] Last Admin: 12/27/23 09:08 Dose: 75 mg Documented By: JIAN Enoxaparin Sodium (Enoxaparin Sodium 40 Mg/0.4 Ml Syringe) 40 mg SUBCUT Q24H [facility] Last Admin: 12/27/23 09:09 Dose: 40 mg Documented By: JIAN Folic Acid (Folic Acid 1 Mg Tablet) 1 mg PO DAILY [facility] Last Admin: 12/27/23 09:08 Dose: 1 mg Documented By: JIAN Gabapentin (Gabapentin 100 Mg Capsule) 200 mg PO TID [facility] Last Admin: 12/27/23 09:08 Dose: 200 mg Documented By: JIAN Glucose (Glucose Gel 15 Gm Gel..Gram.) 15 gm PO Q15M PRN; Protocol PRN Reason: per Hypoglycemia Standing Ord. Dextrose (D10) 250 mls @ 750 mls/hr IV Q15M PRN; Protocol PRN Reason: per Hypoglycemia Standing Ord. Sodium Chloride (Ns) 1,000 mls @ 100 mls/hr IVCONT .Q10H [facility] Last Admin: 12/27/23 09:08 Dose: 100 mls/hr Documented By: JIAN Insulin Human Lispro (Insulin Lispro 100 Unit/Ml 3 Ml Vial) 0 unit SUBCUT QIDACHS [facility]; Protocol Last Admin: 12/27/23 08:35 Dose: Not Given Documented By: JIAN Non-Admin Reason: No Insulin Coverage Magnesium Hydroxide (Milk Of Magnesia 30 Ml Oral.Susp) 30 ml PO DAILY PRN PRN Reason: Constipation Meclizine HCl (Meclizine Hcl 12.5 Mg Tablet) 12.5 mg PO TID [facility] Last Admin: 12/27/23 09:08 Dose: 12.5 mg Documented By: JIAN Melatonin (Melatonin 3 Mg Tablet) 6 mg PO BEDTIME PRN PRN Reason: Insomnia Last Admin: 12/26/23 19:58 Dose: 6 mg Documented By: LIZ Multivitamins/Vitamin C (Multivitamin Tablet) 1 tab PO DAILY [facility] Last Admin: 12/27/23 09:08 Dose: 1 tab Documented By: JIAN Ondansetron HCl (Ondansetron Hcl 4 Mg/2 Ml Vial) 4 mg IVPUSH Q8H PRN PRN Reason: Nausea and Vomiting Pyridoxine HCl (Pyridoxine Hcl (Vitamin B6) 50 Mg Tablet) 50 mg PO DAILY [facility] Last Admin: 12/27/23 09:08 Dose: 50 mg Documented By: JIAN Sodium Chloride (0.9 % Sodium Chloride Flush 3 Ml Syringe) 3 ml IVFLUSH QSHIFT [facility] Last Admin: 12/27/23 09:09 Dose: 3 ml Documented By: JIAN Thiamine HCl (Thiamine Hcl 100 Mg Tablet) 100 mg PO DAILY [facility] Last Admin: 12/27/23 09:08 Dose: 100 mg Documented By: JIAN Labs 12/27/23 05:55 12/27/23 05:55 Labs: Laboratory Results - last 24 hr 12/26/23 12/26/23 12/26/23 13:12 16:44 20:50 MCV MCH MCHC RDW Plt Count MPV Absolute Nucleated RBC Nucleated RBC % (auto) Anion Gap Estim Creat Clear Calc Estimated GFR POC Glucose 134 H 124 H 169 H Fasting Glucose Calcium 12/27/23 12/27/23 05:55 08:10 MCV 100.0 H MCH 34.5 H MCHC 34.5 RDW 13.1 Plt Count 163 MPV 10.2 Absolute Nucleated RBC 0.000 Nucleated RBC % (auto) 0.0 Anion Gap 11 L Estim Creat Clear Calc 120.3 Estimated GFR > 60 POC Glucose 105 Fasting Glucose 109 H Calcium 9.0 Assessment and Plan (1) Pre-syncope: Status: Acute (2) Orthostatic hypotension: Status: Acute Plan 58M PMH etoh dependence, cva, cad, dm, peripheral neuropathy, presented with dizziness Presyncope due to orthostatic hypotension Continue IV fluids, monitor Likely component of autonomic dysfunction due to alcohol dependence History of CVA, CAD Patient noncompliant with meds, restarted dual antiplatelet and statin Diabetes Insulin sliding scale DVT prophylaxis with Lovenox Full Code reason for continued hospitalization: ivf Quality Stroke Does the patient have a stroke diagnosis?: No VTE Prior VTE?: No VTE Risk Level:: Medical - moderate - high VTE Device Contraindication: Treatment Not Indicated VTE Drug Contraindication: N/A - Med Ordered
--- NOTE | 2023-12-27 10:51 | MHC.CM.PN ---
Per MD rounds no dc today. Orthostatic Hypotension+. IV fluids ordered. DP Home self care. Patient will arrange for transportation home.
[2023-12-27 12:37] LABS: Glucose, Whole Blood 157 mg/dL (60-115)
[2023-12-27] MEDS: Insulin Lispro 100 UNIT/ML 3 ML VIAL SUBCUT (12:51)
[2023-12-27 17:01] LABS: Glucose, Whole Blood 125 mg/dL (60-115)
[2023-12-27] MEDS: Acetaminophen 325 MG TABLET 650 MG PO (17:20)
[2023-12-27 20:23] LABS: Glucose, Whole Blood 110 mg/dL (60-115)
[2023-12-27] MEDS: Atorvastatin Calcium 80 MG TABLET PO (22:23)
[2023-12-28 03:30] VITALS: BP 132/63; PULSE 60; RESP 18; TEMP 36; O2SAT 94
[2023-12-28] MEDS: 0.9 % Sodium Chloride 1,000 ML 100 ML IVCONT (03:40)
[2023-12-28 07:00] LABS: Glucose, Whole Blood 125 mg/dL (60-115)
[2023-12-28 07:31] VITALS: BP 111/74; PULSE 69; RESP 20; TEMP 36.3; O2SAT 98
[2023-12-28 08:00] VITALS: BP 152/78; PULSE 64
[2023-12-28 08:24] VITALS: BP 142/83; BP 150/82; PULSE 74; PULSE 76
--- NOTE | 2023-12-28 08:52 | P.DS_ITS ---
DS: Providers Provider Date of Service: 12/28/23 Date of admission: 12/26/23 11:31 Date of discharge: 12/28/23 Primary care physician: Blu Hdz MD DS: Diagnosis Discharge Diagnosis (1) Pre-syncope: Status: Acute (2) Orthostatic hypotension: Status: Acute DS: Summary Hospital Course Hospital Course: from initial hpi: 58-year-old male with pertinent history of CVA, CAD, ily-misudoh-nooxenuwp diabetes mellitus, peripheral neuropathy, tobacco use disorder, alcohol use disorder who presents to the emergency department for evaluation of dizziness. Patient states his symptoms began 3 days prior to presentation. He has been having dizziness which is worse when he tries to get up from a seated position. No chest pain or palpitations. Did not pass out. Denies vomiting or diarrhea. No sensation of room spinning. Denies any vision changes. No fever, chills, shortness of breath, abdominal pain, changes in urinary or bowel habits. States last alcohol use was 4 days prior to presentation and no concern for alcohol withdrawal. Patient states he lost his insurance and hence unable to take his prescription medications for a while but recently resume them The emergency department, orthostatic vital signs positive and patient was given IV crystalloids hospital course: Patient was admitted for presyncope due to orthostatic hypotension he was given IV fluids and orthostasis improved. There is likely an additional component of autonomic dysfunction due to alcohol dependence. For history of CVA and coronary disease patient is noncompliant at home but was restarted on dual anti platelet and statin he is encouraged to continue with compliance with medications. MRI revealed no acute stroke but did show chronic encephalomalacia of the cerebellum likely contributing to patient's symptoms. For diabetes was continued insulin sliding scale. Overall patient is feeling better and will be discharged home. Time Attestation Discharge Coordination Time (in mins): 32 Quality: Safe Use of Opioids Does Pt have an Active Cancer Diagnosis on the Problem List?: No Quality: Stroke Does the patient have a stroke diagnosis?: No Physical Exam Vital Signs: Vital Signs: Last Vital Signs Temp 97.3 F 12/28/23 07:31 Pulse 76 12/28/23 08:24 Resp 20 12/28/23 07:31 BP 142/83 H 12/28/23 08:24 Pulse Ox 98 12/28/23 07:31 O2 Del Method Room Air 12/28/23 07:31 BMI result Body Mass Index 31.1 General: AO X 3, no acute distress Resp: CTA bilateral, no accessory muscles used CVS: S1,S2,RRR GI: soft, non tender, non distended Neuro: motor grossly intact, alert Psych: appropriate affect, appropriate insight DS: Data Data Completed and Pending Labs on day of discharge: Laboratory Results - last 24 hr 12/27/23 12/27/23 12/27/23 11:59 16:23 20:07 POC Glucose 157 H 125 H 110 12/28/23 06:56 POC Glucose 125 H Discharge Plan Discharge Anticipated Discharge Date/Time: 12/28/23 08:51 Patient Disposition: Home, Self-Care Discharge Diagnosis: orthostatic hypotension Referrals: Blu Hdz MD [Primary Care Provider] - 1 Week Discharge Medications: Continued multivitamin Tablet 1 tab PO DAILY atorvastatin 80 mg Tablet 80 mg PO BEDTIME nicotine 14 mg/24 hr Patch 24 Hour 1 patch TRANSDERMAL DAILY thiamine HCl (vitamin B1) 100 mg Tablet 100 mg PO DAILY meclizine 12.5 mg Tablet 12.5 mg PO TID clopidogrel [Plavix] 75 mg Tablet 75 mg PO DAILY aspirin 81 mg Tablet,Delayed Release (Dr/Ec) 81 mg PO DAILY metformin 1,000 mg Tablet 1,000 mg PO BID pyridoxine (vitamin B6) [Vitamin B-6] 50 mg Tablet 50 mg PO DAILY folic acid 1 mg Tablet 1 mg PO DAILY mirtazapine 15 mg Tablet 15 mg PO BEDTIME gabapentin 100 mg Capsule 200 mg PO TID metoprolol tartrate 25 mg Tablet 25 mg PO BID acetaminophen 325 mg Tablet 325 mg PO QID PRN (Reason: Fever Or Pain) Discharge Orders: Discharge Order (Routine); Ordered 12/28/23 Ordered By: Quincy Martinez Diet: Advance to usual diet Activity on Discharge: As tolerated Stand Alone Forms: Patient Portal Discharge page Print Language: Kyr[place]z Care Plan Goals: recovery Health Concerns: history of cerebllar cva, orthostatic Plan of Treatment: aviod etoh take orthostatic precautions Assessment: see above
--- NOTE | 2023-12-28 08:54 | MHC.CM.PN ---
Patient has been medically cleared for dc to home today, self care. Last IMM was addressed on 12/26/2023.
[2023-12-28] MEDS: Pyridoxine HCl (Vitamin B6) 50 MG TABLET PO (09:19)
[2023-12-28] MEDS: Multivitamin TABLET 1 TAB PO (09:19)
[2023-12-28] MEDS: Clopidogrel Bisulfate 75 MG TABLET PO (09:19)
[2023-12-28] MEDS: Aspirin Enteric Coated 81 MG TABLET.DR PO (09:19)
[2023-12-28] MEDS: Enoxaparin Sodium 40 MG/0.4 ML SYRINGE SUBCUT (09:20)
[2023-12-28] MEDS: Folic Acid 1 MG TABLET PO (09:20)
[2023-12-28] MEDS: Meclizine HCl 12.5 MG TABLET PO (09:20)
[2023-12-28] MEDS: Gabapentin 100 MG CAPSULE 200 MG PO (09:20)
[2023-12-28] MEDS: Thiamine HCL 100 MG TABLET PO (09:20)
[2023-12-28 11:01] LABS: Glucose, Whole Blood 170 mg/dL (60-115)
[2023-12-28 11:26] VITALS: BP 144/75; PULSE 74; RESP 18; TEMP 36.6; O2SAT 98
[2023-12-28] MEDS: Insulin Lispro 100 UNIT/ML 3 ML VIAL SUBCUT (12:38)
--- NOTE | 2023-12-28 13:11 | MHC.CM.PN ---
Per RN, Patient's ride is arriving at 3PM today.
== END 2023-12-28 15:23 | disposition home or self-care (01) | DRG 312 ==
LOC: HO.ED 12-26 02:04 → HO.EDOVER 12-26 02:19 → HO.IMC 12-26 15:30
PROVIDERS: Admitting Provider Student in an Organized Health Care Education/Training Program; Emergency Provider Emergency Medicine; PCP Internal Medicine; Visit Provider Internal Medicine
DX: I95.1 Orthostatic hypotension (principal); I25.10 Atherosclerotic heart disease of native coronary artery without angina pectoris; E11.42 Type 2 diabetes mellitus with diabetic polyneuropathy; F10.20 Alcohol dependence, uncomplicated; G90.9 Disorder of the autonomic nervous system, unspecified; F17.210 Nicotine dependence, cigarettes, uncomplicated; Z71.6 Tobacco abuse counseling; Z23 Encounter for immunization; Z86.73 Personal history of transient ischemic attack (TIA), and cerebral infarction without residual deficits; Z20.822 Contact with and (suspected) exposure to COVID-19; Z79.899 Other long term (current) drug therapy
CPT/HCPCS: 0241U; 36415; 70496; 70498; 70551; 80048; 80076; 80307; 82947; 83036; 83735; 83880; 84484; 85025; 85027; 85610; 90471; 90656; 93005; 96360; 96361; 96372; 97162; 99222; 99285; J1650; Q9967

== ENCOUNTER → 2023-12-25 21:07 | Outpatient (BNV) | payer OTHER, SELFPAY | PROVIDERS: Admitting Provider Student in an Organized Health Care Education/Training Program; Emergency Provider Emergency Medicine; Visit Provider Internal Medicine Cardiovascular Disease | DX: R94.31 Abnormal electrocardiogram [ECG] [EKG] (principal) | CPT/HCPCS: 93010 ==

== ENCOUNTER → 2023-12-26 02:12 | Outpatient (BNV) | payer OTHER, SELFPAY | PROVIDERS: Admitting Provider Student in an Organized Health Care Education/Training Program; Emergency Provider Emergency Medicine; Visit Provider Student in an Organized Health Care Education/Training Program | DX: R55 Syncope and collapse (principal); I95.1 Orthostatic hypotension | CPT/HCPCS: 99222; 99232; 99239; 99499 ==